=== PATIENT | female | born 1985 | race Caucasian/White ===

== ENCOUNTER 2017-06-04 16:10 | Emergency (ER) | payer MEDICAID ==
[~2017-06-04] VITALS: Ht 175.3 cm; Wt 72.6 kg
[2017-06-04 16:10] VITALS: BP 112/86
[2017-06-04] MEDS ORDERED: ONDANSETRON 4 MG TAB.RAPDIS ONE (16:54)
[2017-06-04] MEDS ORDERED: ONDANSETRON 4 MG TAB.RAPDIS SL ONE (17:00)
== END 2017-06-04 16:56 | disposition home or self-care (01) ==
LOC: ER 16:11
DX: K29.70 Gastritis, unspecified, without bleeding (principal); M54.6 Pain in thoracic spine; R10.10 Upper abdominal pain, unspecified; G89.29 Other chronic pain; N83.209 Unspecified ovarian cyst, unspecified side; Z88.6 Allergy status to analgesic agent; Z88.8 Allergy status to other drugs, medicaments and biological substances
CPT/HCPCS: 99283; A4606; Z7610; Q0162

== ENCOUNTER 2017-12-11 10:04 | Emergency (ER) | payer MEDICAID ==
[~2017-12-11] VITALS: Ht 175.3 cm; Wt 77.1 kg
--- NOTE | 2017-12-11 10:30 | NUR ---
PT CAME IN FOR NAUSEA/VOMITING X 1 WK, ABD PAIN W/ BACK PAIN LAST NIGHT. SEEN BY MD FOR EVAL. VSS. DENIES FEVER. SAFETY AND COMFORT MEASURES PROVIDED. WILL MONITOR.
[2017-12-11] MEDS ORDERED: METOCLOPRAMIDE HCL 10 MG/2 ML VIAL ONE (10:51)
[2017-12-11] MEDS ORDERED: ONDANSETRON HCL/PF 4 MG/2 ML VIAL ONE ×2 (10:51→11:19)
[2017-12-11] MEDS ORDERED: IV NS 0.9% 1,000 ML BAG IV ONE (11:00)
[2017-12-11] MEDS ORDERED: ONDANSETRON HCL/PF 4 MG/2 ML VIAL IVP ONE (11:00)
--- NOTE | 2017-12-11 11:00 | NUR ---
IV ACCESS STARTED. BLOOD DRAWN AND MEDICATED ORDERED.
[2017-12-11] MEDS: METOCLOPRAMIDE HCL 10 MG/2 ML VIAL IV ONE ×2 (11:16→11:31)
[2017-12-11 11:24] LABS: BASOPHILS # (AUTO) 0.1 /CMM (0.0-0.2); BASOPHILS % (AUTO) 2.7 % (0.0-2.0); EOSINOPHILS # (AUTO) 0.1 /CMM (0.0-0.7); EOSINOPHILS % (AUTO) 1.1 % (0.0-6.0); HEMATOCRIT 32 % (33-45); HEMOGLOBIN 10.6 g/dL (11.5-14.8); LYMPHOCYTES # (AUTO) 1.2 /CMM (0.8-4.8); LYMPHOCYTES % (AUTO) 24.8 % (20.0-44.0); MEAN CORPUSCULAR HEMOGLOBIN 28 PG (26.0-33.0); MEAN CORPUSCULAR HGB CONC 33 g/dl (31.0-36.0); MEAN CORPUSCULAR VOLUME 84 fL (82-100); MONOCYTES # (AUTO) 0.1 /CMM (0.1-1.30); MONOCYTES % (AUTO) 2.9 % (2.0-12.0); NEUTROPHILS # (AUTO) 3.4 /CMM (1.8-8.9); NEUTROPHILS % (AUTO) 68.5 % (43.0-81.0); PLATELET COUNT (AUTO) 311 /CMM (150-450); RDW COEFFICIENT OF VARIATION 17.1 (11.5-15.0); RED BLOOD CELL COUNT(AUTO) 3.82 MIL/uL (4.0-5.2); WHITE BLOOD COUNT (AUTO) 4.9 K/uL (4.3-11.0)
[2017-12-11 11:32] LABS: CALCIUM, SERUM 8.3 mg/dL (8.5-10.1); CREATININE 0.7 mg/dL (0.6-1.3); POTASSIUM 3.6 mmol/L (3.5-5.1)
[2017-12-11 11:44] LABS: ALBUMIN 3.7 g/dL (3.4-5.0); BILIRUBIN,TOTAL 0.7 mg/dL (0.2-1.0); TOTAL PROTEIN, SERUM 8.4 g/dL (6.4-8.2)
[2017-12-11 11:54] LABS: BILIRUBIN,DIRECT 0.2 mg/dL (0.0-0.2)
[2017-12-11] MEDS ORDERED: TRAMADOL HCL 50 MG TABLET ONE (12:30)
[2017-12-11] MEDS ORDERED: TRAMADOL HCL 50 MG TABLET PO ONE (12:30)
--- NOTE | 2017-12-11 12:40 | NUR ---
IV removed. Catheter intact and site benign. Pressure and 4x4 applied to site. No bleeding noted.
--- NOTE | 2017-12-11 12:42 | NUR ---
Patient discharged to home in stable condition. Written and verbal after care instructions given. Patient verbalizes understanding of instruction.
[2017-12-11 12:43] VITALS: BP 128/75
== END 2017-12-11 12:43 | disposition home or self-care (01) ==
LOC: ER 10:06
DX: R10.13 Epigastric pain (principal); R11.2 Nausea with vomiting, unspecified; Z88.6 Allergy status to analgesic agent; Z88.5 Allergy status to narcotic agent
CPT/HCPCS: 36415; 80048; 80076; 83690; 85025; 87804 ×2; 96361; 96374; 99284; A4606; J2405 ×2; J2765; J7030; Z7610; 87400